=== PATIENT | female | born 1980 | race Caucasian/White ===

== ENCOUNTER 2017-10-14 09:26 | Emergency (ER) | payer OTHER ==
--- NOTE | 2017-10-14 10:21 | EDM.PDOC ---
ED HPI GENERAL MEDICAL PROBLEM - General Chief Complaint: Skin Complaint Stated Complaint: R EAR POSSIBLE FROSTBITE Time Seen by Provider: 10/14/17 10:10 Source of Information: Reports: Patient History Limitations: Reports: No Limitations - History of Present Illness INITIAL COMMENTS - FREE TEXT/NARRATIVE: HISTORY AND PHYSICAL: History of present illness: [Patient comes to the emergency room complaining of right ear pain. States that she was working outside yesterday afternoon in negative temperatures for 15-20 minutes. Her right ear was exposed and she thinks she got frostbite. About 30 minutes after exposure her ear started to burn. She applied aloe vera gel last night with minimal improvement in symptoms. Burning sensation has resolved and she is only experiencing tenderness with palpation. Her ear is red and swollen today. Review of systems: As per history of present illness and below otherwise all systems reviewed and negative. Past medical history: As per history of present illness and as reviewed below otherwise noncontributory. Surgical history: As per history of present illness and as reviewed below otherwise noncontributory. Social history: No reported history of drug or alcohol abuse. Family history: As per history of present illness and as reviewed below otherwise noncontributory. Physical exam: HEENT: Right ear is erythematous and swollen. Clear bullous blister present on the posterior aspect of her right ear with clear colored fluid. Mild tenderness with palpation. Head is otherwise atraumatic and normocephalic. Oral mucous membranes are pink and moist. Extremities: Atraumatic. Neuro: Awake, alert, oriented. Impression: [hill bite, R ear] Plan: [Keep ear clean and dry. Absolutely avoid refreezing. Tylenol alternating with ibuprofen as needed for discomfort. Do not pick at blisters. Strict return precautions are discussed. ] Definitive disposition and diagnosis as appropriate pending reevaluation and review of above. right pinna Pain Score (Numeric/FACES): 5 - Related Data Allergies Allergy/AdvReac Type Severity Reaction Status Date / Time No Known Allergies Allergy Verified 10/14/17 09:42 Home Meds: Home Meds . [No Known Home Meds] 10/14/17 [History] Past Medical History - Past Health History Medical/Surgical History: Denies Medical/Surgical History Social & Family History - Family History Family Medical History: Noncontributory - Tobacco Use Smoking Status *Q: Never Smoker - Recreational Drug Use Recreational Drug Use: No ED ROS GENERAL - Review of Systems Review Of Systems: See Below ED EXAM, SKIN/RASH Exam: Not Obtained Course - Vital Signs Last Recorded V/S: Last Vital Signs Temp 97.4 F 10/14/17 09:26 Pulse 72 10/14/17 09:26 Resp 18 10/14/17 09:26 BP 107/67 10/14/17 09:26 Pulse Ox 99 10/14/17 09:26 Departure - Departure Time of Disposition: 10:30 Disposition: Home, Self-Care 01 Condition: Good Clinical Impression: Frostbite of ear - Discharge Information Referrals: PCP,None [Primary Care Provider] - Forms: ED Department Discharge Additional Instructions: The following information is given to patients seen in the emergency department who are being discharged to home. This information is to outline your options for follow-up care. We provide all patients seen in our emergency department with a follow-up referral. The need for follow-up, as well as the timing and circumstances, are variable depending upon the specifics of your emergency department visit. If you don't have a primary care physician on staff, we will provide you with a referral. We always advise you to contact your personal physician following an emergency department visit to inform them of the circumstance of the visit and for follow-up with them and/or the need for any referrals to a consulting specialist. The emergency department will also refer you to a specialist when appropriate. This referral assures that you have the opportunity for follow-up care with a specialist. All of these measure are taken in an effort to provide you with optimal care, which includes your follow-up. Under all circumstances we always encourage you to contact your private physician who remains a resource for coordinating your care. When calling for follow-up care, please make the office aware that this follow-up is from your recent emergency room visit. If for any reason you are refused follow-up, please contact the [facility] emergency department at and asked to speak to the emergency department charge nurse. [address] [address] Establish care with a provider at the clinic listed above for follow-up there in the next 48-72 hours. Keep ear clean and dry. Do not pick at blister. Tylenol or ibuprofen as needed for discomfort. Avoid refreezing of the area. Return to ER as needed as discussed.
[2017-10-14] MEDS ORDERED: Diphtheria,Pertussis(Acell),Tetanus Vaccine 0.5 ML Syringe IM ONE (10:22)
== END 2017-10-14 10:37 | disposition home or self-care (01) ==
LOC: MW.ED 09:26
DX: T33.011A Superficial frostbite of right ear, initial encounter (principal); Z23 Encounter for immunization; X31.XXXA Exposure to excessive natural cold, initial encounter
CPT/HCPCS: 90471; 90715; 99282; 99283-25